=== PATIENT | male | born 1970 | race Caucasian/White ===

== ENCOUNTER 2021-02-17 07:00 | Outpatient (CLI) | payer BC | END 2021-02-17 23:59 | disposition home or self-care (01) | LOC: COV 07:00 | PROVIDERS: ATTEND Family Medicine | DX: Z20.822 Contact with and (suspected) exposure to COVID-19 (principal) ==

== ENCOUNTER 2021-06-12 16:23 | Outpatient (CLI) | payer BC | END 2021-06-12 16:24 | disposition home or self-care (01) | LOC: COV 16:23 | PROVIDERS: ATTEND Family Medicine | DX: Z20.822 Contact with and (suspected) exposure to COVID-19 (principal) ==

== ENCOUNTER 2021-07-09 08:00 | Outpatient (CLI) | payer BC | END 2021-07-09 23:59 | disposition home or self-care (01) | LOC: LAB.N 08:00 | PROVIDERS: ATTEND Physician Assistant Medical | DX: J01.00 Acute maxillary sinusitis, unspecified (principal); Z20.822 Contact with and (suspected) exposure to COVID-19 ==

== ENCOUNTER 2021-07-13 15:41 | Outpatient (CLI) | payer BC | END 2021-07-13 15:42 | disposition home or self-care (01) | LOC: COV 15:41 | PROVIDERS: ATTEND Family Medicine | DX: Z20.822 Contact with and (suspected) exposure to COVID-19 (principal) ==

== ENCOUNTER 2021-07-19 08:00 | Outpatient (CLI) | payer BC | END 2021-07-19 23:59 | disposition home or self-care (01) | LOC: LAB.N 08:00 | PROVIDERS: ATTEND Family Medicine | DX: Z20.822 Contact with and (suspected) exposure to COVID-19 (principal) ==

== ENCOUNTER 2021-07-28 08:00 | Outpatient (CLI) | payer BC | END 2021-07-28 23:59 | disposition home or self-care (01) | LOC: LAB.N 08:00 | PROVIDERS: ATTEND Family Medicine | DX: Z20.822 Contact with and (suspected) exposure to COVID-19 (principal) ==

== ENCOUNTER 2021-08-27 08:00 | Outpatient (CLI) | payer BC | END 2021-08-27 23:59 | disposition home or self-care (01) | LOC: LAB.S 08:00 | PROVIDERS: ATTEND Physician Assistant Medical | DX: Z20.822 Contact with and (suspected) exposure to COVID-19 (principal) ==

== ENCOUNTER 2021-09-05 08:00 | Outpatient (CLI) | payer BC | END 2021-09-05 23:59 | disposition home or self-care (01) | LOC: LAB 08:00 | PROVIDERS: ATTEND Physician Assistant Medical | DX: Z20.822 Contact with and (suspected) exposure to COVID-19 (principal) ==

== ENCOUNTER 2021-09-24 12:07 | Outpatient (CLI) | payer BC | END 2021-09-24 23:59 | disposition home or self-care (01) | LOC: LAB 12:07 | PROVIDERS: ATTEND Family Medicine | DX: Z20.822 Contact with and (suspected) exposure to COVID-19 (principal) ==

== ENCOUNTER 2021-10-16 12:21 | Outpatient (CLI) | payer BC | END 2021-10-16 23:59 | disposition home or self-care (01) | LOC: LAB.N 12:21 | PROVIDERS: ATTEND Physician Assistant Medical | DX: Z20.822 Contact with and (suspected) exposure to COVID-19 (principal) ==

== ENCOUNTER 2021-10-22 08:00 | Outpatient (CLI) | payer BC | END 2021-10-22 23:59 | LOC: LAB 08:00 | PROVIDERS: ATTEND Family Medicine | DX: Z20.822 Contact with and (suspected) exposure to COVID-19 (principal) ==

== ENCOUNTER 2021-11-01 08:00 | Outpatient (CLI) | payer BC | END 2021-11-01 23:59 | LOC: LAB.N 08:00 | PROVIDERS: ATTEND Family Medicine | DX: Z20.822 Contact with and (suspected) exposure to COVID-19 (principal) ==

== ENCOUNTER 2021-11-07 08:00 | Outpatient (CLI) | payer BC | END 2021-11-07 23:59 | LOC: LAB.N 08:00 | PROVIDERS: ATTEND Family Medicine | DX: Z20.822 Contact with and (suspected) exposure to COVID-19 (principal) ==

== ENCOUNTER 2021-11-27 08:00 | Outpatient (CLI) | payer BC | END 2021-11-27 23:59 | LOC: LAB.N 08:00 | PROVIDERS: ATTEND Nurse Practitioner | DX: Z20.822 Contact with and (suspected) exposure to COVID-19 (principal) ==

== ENCOUNTER 2021-12-22 08:00 | Outpatient (CLI) | payer BC | END 2021-12-22 23:59 | LOC: LAB.N 08:00 | PROVIDERS: ATTEND Nurse Practitioner | DX: Z20.822 Contact with and (suspected) exposure to COVID-19 (principal) ==